=== PATIENT | male | born 1980 | race Caucasian/White ===

== ENCOUNTER 2024-07-10 19:51 | Emergency (ER) | payer OTHER | END 2024-07-10 20:50 | disposition home or self-care (01) | LOC: CC.ED 19:51 | DX: S80.12XA Contusion of left lower leg, initial encounter (principal); I10 Essential (primary) hypertension; Z79.899 Other long term (current) drug therapy; W55.12XA Struck by horse, initial encounter; Y93.89 Activity, other specified | CPT/HCPCS: 73590-LT; 99283 ==